=== PATIENT | female | born 1990 | race Caucasian/White ===

== ENCOUNTER → 2016-09-30 | Outpatient (CLI) | payer OTHER ==
[2016-09-30 10:28] LABS: BILIRUBIN,URINE NEGATIVE (NEGATIVE); BLOOD/HEMOGLOBIN,URINE 1+ (NEGATIVE); GLUCOSE, URINE NEGATIVE (NEGATIVE); KETONES,URINE NEGATIVE (NEGATIVE); LEUKOCYTE ESTERASE ,URINE 1+ (NEGATIVE); NITRITES,URINE NEGATIVE (NEGATIVE); PROTEIN,URINE 1+ (NEGATIVE); UROBILINOGEN,URINE NORMAL (NORMAL)
[2016-09-30 10:35] LABS: APPEARANCE,URINE HAZY (CLEAR); BACTERIA,URINE TRACE /HPF (NEGATIVE); COLOR,URINE YELLOW (YELLOW); MUCUS,URINE MODERATE /HPF (NEGATIVE); SQUAMOUS EPITHELIAL CELL,UR MODERATE /HPF (NEGATIVE)
[2016-09-30 10:40] LABS: SERUM PREGNANCY TEST, QUAL NEGATIVE <10 mIU/mL
[2016-09-30 10:41] LABS: BLOOD UREA NITROGEN 13 mg/dL (7-18); CALCIUM 9.5 mg/dL (8.5-10.1); CARBON DIOXIDE 29.2 mmol/L (21-32); CHLORIDE 104 mmol/L (98-107); CREATININE 1.11 mg/dL (0.55-1.02); GLUCOSE 87 mg/dL (65-99); SODIUM 141 mmol/L (136-145); eGFR BLACK RACES > 60 (>60); eGFR NON BLACK RACES > 60 (>60)
[2016-09-30 11:03] LABS: BASOPHILS # (AUTO) 0.1 X10^3/uL (0.0-0.1); BASOPHILS % (AUTO) 0.9 % (0.2-1.0); EOSINOPHILS # (AUTO) 0.1 x10^3/uL (0.0-0.2); EOSINOPHILS % (AUTO) 1.6 % (0.9-2.9); HEMATOCRIT 41.2 % (36.0-47.0); LYMPHOCYTES # (AUTO) 1.6 X10^3/uL (1.3-2.9); LYMPHOCYTES % (AUTO) 28.5 % (21.0-51.0); MEAN CORPUSCULAR HEMOGLOBIN 29.2 pg (27.0-34.0); MEAN CORPUSCULAR HGB CONC 33.9 g/dL (33.0-35.0); MEAN CORPUSCULAR VOLUME 86.2 fL (80.0-100.0); MEAN PLATELET VOLUME 9.9 fL (7.4-11.0); MONOCYTES # (AUTO) 0.4 x10^3/uL (0.3-0.8); MONOCYTES % (AUTO) 6.7 % (0.0-13.0); NEUTROPHILS # (AUTO) 3.5 x10^3/uL (2.2-4.8); NEUTROPHILS % (AUTO) 62.3 % (42.0-75.0); PLATELET COUNT 309 X10^3/uL (150.0-450.0); RED BLOOD COUNT 4.78 X10^6/uL (3.5-5.4); RED CELL DISTRIBUTION WIDTH 12.5 % (11.6-16.5); WHITE BLOOD COUNT 5.6 X10^3/uL (3.6-10.0)
== END ==
LOC: LAB 09:32
PROVIDERS: ATTEND Specialist
DX: Z01.818 Encounter for other preprocedural examination (principal); N92.5 Other specified irregular menstruation; N94.6 Dysmenorrhea, unspecified; N94.19 Other specified dyspareunia; R10.2 Pelvic and perineal pain
CPT/HCPCS: 36415; 80048; 81001; 84703; 85025; 85610; 85730; 86850; 86900; 86901; 87086

== ENCOUNTER 2016-10-07 06:16 | Inpatient (IN) | payer OTHER ==
[2016-10-07] MEDS ORDERED: ANCEF VIAL 1 GM 1 GM in NS 50 ML IV + SPIKE MINIBAG* 50 ML IV PRN (06:29)
[2016-10-07] MEDS ORDERED: D5 1/2 NS 1000 ML 1,000 ML IV SCH ×2 (06:29→10:03)
[2016-10-07] MEDS ORDERED: NS 50 ML IV + SPIKE MINIBAG* 50 ML IV ONE (06:31)
[2016-10-07] MEDS ORDERED: ANCEF VIAL 1 GM ONE (06:32)
[2016-10-07] MEDS ORDERED: DECADRON INJ ONE (06:45)
[2016-10-07 07:01] VITALS: BMI 24.5
[2016-10-07] MEDS ORDERED: FENTANYL INJ 250 mcg ONE (07:08)
[2016-10-07] MEDS ORDERED: DILAUDID INJ ONE ×3 (07:08→09:15)
[2016-10-07] MEDS ORDERED: D5 1/2 NS 1000 ML 1,000 ML IV ONE (07:10)
[2016-10-07] MEDS ORDERED: NS IRRIGATION 1000 ML 1,000 ML IR ONE (07:38)
[2016-10-07] MEDS: LR 1000 ML IV 1,000 ML IV ONE ×2 (07:50→08:12)
[2016-10-07 08:11] LABS: BILIRUBIN,URINE NEGATIVE (NEGATIVE); BLOOD/HEMOGLOBIN,URINE NEGATIVE (NEGATIVE); GLUCOSE, URINE 1+ (NEGATIVE); KETONES,URINE 1+ (NEGATIVE); LEUKOCYTE ESTERASE ,URINE NEGATIVE (NEGATIVE); NITRITES,URINE NEGATIVE (NEGATIVE); PROTEIN,URINE NEGATIVE (NEGATIVE); UROBILINOGEN,URINE NORMAL (NORMAL)
[2016-10-07 08:16] LABS: AMORPHOUS SEDIMENT,UR TRACE /HPF (NEGATIVE); APPEARANCE,URINE CLEAR (CLEAR); BACTERIA,URINE NEGATIVE /HPF (NEGATIVE); COLOR,URINE YELLOW (YELLOW); RBC,URINE RARE /HPF (NEGATIVE); SQUAMOUS EPITHELIAL CELL,UR RARE /HPF (NEGATIVE)
[2016-10-07 08:17] LABS: MUCUS,URINE FEW /HPF (NEGATIVE)
[2016-10-07] MEDS: DILAUDID INJ IVP PRN ×5 (09:00→09:20)
[2016-10-07] MEDS ORDERED: ZOFRAN INJ 4 MG VIAL IVP PRN ×2 (09:04→10:03)
[2016-10-07] MEDS ORDERED: BENADRYL INJ 50 MG VIAL IVP PRN ×2 (09:04→10:03)
[2016-10-07] MEDS ORDERED: REGLAN INJ 10 MG VIAL IVP PRN (09:04)
[2016-10-07] MEDS ORDERED: PHENERGAN INJ 25 MG IVP PRN (09:04)
[2016-10-07] MEDS ORDERED: MORPHINE SULFATE PCA 30 MG IVP PRN (09:12)
[2016-10-07] MEDS ORDERED: TORADOL 30 MG VIAL IVP PRN (10:03)
[2016-10-07] MEDS: MORPHINE SULFATE PCA 30 MG IVP PRN ×2 (10:23→20:35)
[2016-10-07] MEDS: D5 1/2 NS 1000 ML 1,000 ML IV SCH ×4 (12:52→23:12)
[2016-10-07] MEDS: PHENERGAN INJ 25 MG IV PRN ×2 (12:52→21:19)
[2016-10-07] MEDS: PERCOCET TAB 5/325 MG PO PRN ×3 (12:56→21:18)
[2016-10-07] MEDS ORDERED: VERSED ONE (14:12)
[2016-10-07] MEDS ORDERED: LTA KIT LIDOCAINE 4% ONE (14:12)
[2016-10-07] MEDS ORDERED: XYLOCAINE 2 % (PLAIN) ONE (14:12)
[2016-10-07] MEDS ORDERED: NORCURON INJ 10 MG VIAL ONE (14:12)
[2016-10-07] MEDS ORDERED: ROBINUL ONE (14:12)
[2016-10-07] MEDS ORDERED: NEOSTIGMINE INJ ONE (14:12)
[2016-10-07] MEDS ORDERED: QUELICIN (OR ANECTINE) ONE (14:12)
[2016-10-07] MEDS ORDERED: SUPRANE IN ONE (14:12)
[2016-10-07] MEDS ORDERED: EPHEDRINE SULFATE INJ ONE (14:12)
[2016-10-07] MEDS ORDERED: ZOFRAN INJ 4 MG VIAL ONE (14:12)
[2016-10-07] MEDS ORDERED: DIPRIVAN VIAL ONE (14:12)
[2016-10-07] MEDS ORDERED: INDERAL TAB 10 MG PO SCH (21:00)
[2016-10-07] MEDS: INDERAL TAB 10 MG PO SCH (21:18)
[2016-10-08] MEDS: PERCOCET TAB 5/325 MG PO PRN ×3 (04:27→20:35)
[2016-10-08] MEDS: PHENERGAN INJ 25 MG IV PRN (04:28)
[2016-10-08] MEDS: D5 1/2 NS 1000 ML 1,000 ML IV SCH ×3 (04:30→22:40)
[2016-10-08 05:57] LABS: BASOPHILS % (AUTO) 0.5 % (0.2-1.0); EOSINOPHILS % (AUTO) 0.6 % (0.9-2.9); HEMATOCRIT 35.8 % (36.0-47.0); LYMPHOCYTES # (AUTO) 1.9 X10^3/uL (1.3-2.9); LYMPHOCYTES % (AUTO) 27.2 % (21.0-51.0); MEAN CORPUSCULAR HEMOGLOBIN 28.9 pg (27.0-34.0); MEAN CORPUSCULAR HGB CONC 33.6 g/dL (33.0-35.0); MEAN CORPUSCULAR VOLUME 85.9 fL (80.0-100.0); MEAN PLATELET VOLUME 9.6 fL (7.4-11.0); MONOCYTES # (AUTO) 0.8 x10^3/uL (0.3-0.8); MONOCYTES % (AUTO) 12.2 % (0.0-13.0); NEUTROPHILS # (AUTO) 4.1 x10^3/uL (2.2-4.8); NEUTROPHILS % (AUTO) 59.5 % (42.0-75.0); PLATELET COUNT 225 X10^3/uL (150.0-450.0); RED BLOOD COUNT 4.17 X10^6/uL (3.5-5.4); RED CELL DISTRIBUTION WIDTH 12.2 % (11.6-16.5); WHITE BLOOD COUNT 6.9 X10^3/uL (3.6-10.0)
[2016-10-08 06:01] LABS: BLOOD UREA NITROGEN 10 mg/dL (7-18); CALCIUM 8.4 mg/dL (8.5-10.1); CARBON DIOXIDE 29.3 mmol/L (21-32); CHLORIDE 105 mmol/L (98-107); CREATININE 1.02 mg/dL (0.55-1.02); GLUCOSE 99 mg/dL (65-99); SODIUM 139 mmol/L (136-145); eGFR BLACK RACES > 60 (>60); eGFR NON BLACK RACES > 60 (>60)
[2016-10-08] MEDS: INDERAL TAB 10 MG PO SCH ×2 (08:41→20:29)
[2016-10-08] MEDS: COLACE CAP 100 MG PO SCH ×2 (08:41→20:29)
[2016-10-08] MEDS: MOTRIN TAB 800 MG PO PRN (12:54)
[2016-10-08] MEDS: BACTROBAN OINT TOP SCH ×2 (15:43→21:55)
[2016-10-09] MEDS: BACTROBAN OINT TOP SCH (06:26)
[2016-10-09] MEDS: D5 1/2 NS 1000 ML 1,000 ML IV SCH (06:27)
[2016-10-09] MEDS: MOTRIN TAB 800 MG PO PRN (07:04)
[2016-10-09 08:14] VITALS: BP 97/54
[2016-10-09] MEDS: INDERAL TAB 10 MG PO SCH (10:00)
[2016-10-09] MEDS: COLACE CAP 100 MG PO SCH (10:01)
== END 2016-10-09 10:40 | disposition home or self-care (01) | DRG 743 ==
LOC: OBS 06:16
PROVIDERS: ADMIT Specialist; ATTEND Specialist
PROC: 0UTC0ZZ Resection of Cervix, Open Approach (ICD-10-PCS; 2016-10-07)
PROC: 0UT90ZZ Resection of Uterus, Open Approach (ICD-10-PCS; principal; 2016-10-07 07:30)
DX: N92.5 Other specified irregular menstruation (principal); N94.6 Dysmenorrhea, unspecified; N94.19 Other specified dyspareunia; I10 Essential (primary) hypertension; R10.2 Pelvic and perineal pain; Z87.42 Personal history of other diseases of the female genital tract
CPT/HCPCS: 36415; 80048; 81001; 85025; 94760; A4216; A4222; J0330; J0690; J1100; J1170; J1885; J2001; J2250; J2271; J2405; J2550; J2710; J3010; J3490; J7042; J7120

== ENCOUNTER 2016-10-14 10:52 | Inpatient (IN) | payer OTHER ==
[2016-10-14 10:58] VITALS: BMI 24.6
[2016-10-14] MEDS ORDERED: NS 1000 ML 1,000 ML ONE ×2 (11:13→12:45)
[2016-10-14] MEDS ORDERED: NS 1000 ML 1,000 ML IV ONE ×2 (11:18→12:48)
[2016-10-14] MEDS ORDERED: ZOFRAN INJ 4 MG VIAL IVP ONE (11:24)
[2016-10-14] MEDS ORDERED: MORPHINE SULFATE INJ 4 MG IVP ONE (11:24)
--- NOTE | 2016-10-14 11:29 | DR.GENAD ---
HPI - PCP Primary Care Physician: hai - HPI Comment HPI Comment: PAIN SEVERE AND SOME VAGINAL BLEEDING WITH CLOT NOTED. SHE FEEL WEAK AND ALMOST FAINTED. SOME NAUSE BUT NO VOMITING. - Complaint/Symptoms Chief Complaint Doctors Comments: ABDOMINAL PAIN SINCE THIS AM. S/P HYSTERECTOMY ONE WEEK AGO. Chief Complaint:: patient had abd hysterectomy a week ago and this morning she started hurting bad and she stated she blacked out. she called her ob and was told to come to the er. - Nurses notes reviewed Nurses Notes Review: Yes - Source History Provided: Patient - Mode of Arrival Mode of Arrival: Wheelchair - Timing Onset of Chief Complaint: 10/14/16 Came on: Suddenly - Duration Duration: Constant Duration: Hours - Severity Severity: Moderate PMH - PMH Past Medical History: No Past Surgical History: Yes Surgical History: , Hysterectomy, Tonsillectomy - Family History History of Family Medical Conditions: Yes Family Medical History: Diabetes Mellitus, Cancer, [place], Hypertension - Social History Does patient currently use any type of tobacco product: No Have you used tobacco products in the last 12 months: No Type of Tobacco Use: None Does any household member use tobacco: No Alcohol Use: None Do you use any recreational Drugs:: No Lives With: Family Lives Where: Home - infectious screening In the last 2 months have you had wt loss of >10#?: NO Have you had fever, night sweats or hemotysis?: No Have you traveled outside the country in the last 6 months?: No Isolation: Standard ROS - Review of Systems Constitutional: Weakness, Fatigue Eyes: Blurred Vision (SLIGHT BLURRED VISION.) ENTM: No Symptoms Reported Respiratoy: No Symptoms Reported Cardiovascular: No Symptoms Reported Gastrointestinal/Abdominal: Abdominal Pain, Nausea Genitourinary: No Symptoms Reported. negative: Dysuria, Frequency, Hematuria Neurological: Weakness, Dizziness Musculoskeletal: No Symptoms Reported Integumentary: No Symptoms Reported Hematologic/Lymphatic: No Symptoms Reported Endocrine: No Symptoms Reported All Other Systems: Reviewed and Negative PE - Vital Signs Vitals: Temperature 97.8 F Pulse Rate 133 Respiratory Rate 18 Blood Pressure [Right Arm] 97/54 Blood Pressure [Left Arm] 100/61 Blood Pressure 103/67 O2 Sat by Pulse Oximetry 99 - General Limitations: No Limitations General Appearance: Alert - Head Head Exam: Normal Inspection - Eyes Eye exam: Normal Appearance - ENT ENT Exam: Normal External Ear Exam External Ear Exam: Normal External Inspection TM/Canal Exam: Bilateral Normal Nose Exam: Normal Nose Exam Mouth Exam: Normal Inspection Throat Exam: Normal Inspection - Neck Neck Exam: Trachea Midline - Chest Chest Inspection: Symmetric Chest Wall Rise - Respiratory Respiratory Exam: Normal Lung Sounds Bilat Respiratory Exam: Bilateral Clear to Auscultation - Cardiovascular Cardiovascular Exam: Regular Rate, Normal Rhythm, Normal Heart Sounds - Abdominal Exam Abdominal Exam: Normal Bowel Sounds, Soft, Tenderness Abdominal Tenderness: Diffuse, Severe - Extremities Extremities Exam: Normal Inspection - Back Back Exam: Normal Inspection - Neurologic Neurological Exam: Alert, Oriented X3, CN II-XII Intact. negative: Motor Sensory Deficit - Psychiatric Psychiatric Exam: Anxious - Skin Skin Exam: Pallor MDM - Additional Information Additional Information Obtained From: Family - Differential Diagnosis Differential Diagnosis: HYPOTENSION, ABDOMINAL PAIN. RULE OUT HEMORRHAGE. Course - Treatment Treatment: SEE ORDERS. - Reevaluation 1st: Improved (BP IMPROVING WITH IV FLUIDS.) - Consultation Consultation Comments: DISCUSS PATIENT WITH DR. KING, [employer] . SHE WILL ADMIT PATIENT. - Education/Counseling Education/Counseling: Patient, Family, Education Educated On: Treatment, Diagnosis ROR - Labs Reviewed Laboratory Results Reviewed?: Yes Result Diagrams: 10/14/16 17:35 10/14/16 11:20 - XRAY XRAY Interpreted by: Radiologist XRAY Findings: REPORT DISCUSS WITH PATIENT AND HER FAMILY. - Diagnosis Discharge Problem: Pelvic hematoma, female Abdominal pain Qualifiers: Abdominal location: generalized Qualified Code(s): R10.84 - Generalized abdominal pain Hypotension Qualifiers: Hypotension type: orthostatic hypotension Qualified Code(s): I95.1 - Orthostatic hypotension - Discharge Plan Disposition: ADMITTED INPATIENT Condition: Stable - Follow ups/Referrals - Instructions
[2016-10-14 11:37] LABS: BASOPHILS # (AUTO) 0.1 X10^3/uL (0.0-0.1); BASOPHILS % (AUTO) 0.7 % (0.2-1.0); EOSINOPHILS # (AUTO) 0.1 x10^3/uL (0.0-0.2); EOSINOPHILS % (AUTO) 0.8 % (0.9-2.9); HEMATOCRIT 32.3 % (36.0-47.0); LYMPHOCYTES # (AUTO) 1.3 X10^3/uL (1.3-2.9); LYMPHOCYTES % (AUTO) 11.3 % (21.0-51.0); MEAN CORPUSCULAR HEMOGLOBIN 29.1 pg (27.0-34.0); MEAN CORPUSCULAR HGB CONC 34.2 g/dL (33.0-35.0); MEAN PLATELET VOLUME 9.3 fL (7.4-11.0); MONOCYTES # (AUTO) 0.8 x10^3/uL (0.3-0.8); MONOCYTES % (AUTO) 6.9 % (0.0-13.0); NEUTROPHILS # (AUTO) 9.5 x10^3/uL (2.2-4.8); NEUTROPHILS % (AUTO) 80.3 % (42.0-75.0); PLATELET COUNT 345 X10^3/uL (150.0-450.0); RED CELL DISTRIBUTION WIDTH 12.2 % (11.6-16.5); WHITE BLOOD COUNT 11.8 X10^3/uL (3.6-10.0)
[2016-10-14 11:44] LABS: ALANINE AMINOTRANSFERASE 14 Units/L (12-78); ALBUMIN 3.9 g/dL (3.4-5.0); ALKALINE PHOSPHATASE 49 Units/L (46-116); ASPARTATE AMINO TRANSFERASE 11 Units/L (15-37); BLOOD UREA NITROGEN 11 mg/dL (7-18); CALCIUM 9.3 mg/dL (8.5-10.1); CARBON DIOXIDE 24.5 mmol/L (21-32); CHLORIDE 104 mmol/L (98-107); CREATININE 0.99 mg/dL (0.55-1.02); GLUCOSE 103 mg/dL (65-99); SODIUM 140 mmol/L (136-145); TOTAL PROTEIN 7.9 g/dL (6.4-8.2); eGFR BLACK RACES > 60 (>60); eGFR NON BLACK RACES > 60 (>60)
[2016-10-14] MEDS ORDERED: NS 100 ML IV 100 ML IV ONE (11:59)
[2016-10-14] MEDS ORDERED: ZOFRAN INJ 4 MG VIAL ONE (12:17)
[2016-10-14] MEDS ORDERED: MORPHINE SULFATE INJ 4 MG ONE (12:17)
--- NOTE | 2016-10-14 12:42 | CT ---
CT abdomen pelvis with contrast Indication: Abdominal pain with history of hysterectomy 1 week ago Technique: Helical CT images of the abdomen and pelvic were obtained with IV contrast. Reformatted i mages in the coronal and sagittal planes were also generated for review. Comparison: None Findings: The visualized lung bases are clear. No aggressive osseous lesions are identified. Postsurgical changes related to recent hysterectomy are noted. There is a large mixed attenuation co llection within the lower pelvis, compatible with hematoma. The hematoma measures roughly 10.2 x 7.1 by 10.6 cm in maximum transverse by AP by CC dimension. Small-moderate volume abdominal hemoperiton eum is also present, related to direct cranial extension of the pelvic hematoma. There are multiple small areas of ill-defined contrast blush within the pelvic hematoma (within the right pelvis on dianelys ge 76-79 and lower pelvis on 85-86, series 4), concerning for active extravasation. The liver, gallbladder, spleen, pancreas, adrenals, kidneys, IVC and abdominal aorta are unremarkabl e. No incidental lymphadenopathy is identified. Impression: 1. Post hysterectomy changes with large lower pelvic hematoma and multifocal areas of contrast blush , concerning for active extravasation. 2. Small-moderate volume abdominal hemoperitoneum, related to direct cranial extension of the pelvic hematoma. Reported By:
[2016-10-14] MEDS: DILAUDID INJ IVP PRN ×2 (13:36→20:32)
[2016-10-14 13:52] LABS: BILIRUBIN,URINE NEGATIVE (NEGATIVE); BLOOD/HEMOGLOBIN,URINE 4+ (NEGATIVE); GLUCOSE, URINE NEGATIVE (NEGATIVE); KETONES,URINE 2+ (NEGATIVE); LEUKOCYTE ESTERASE ,URINE 2+ (NEGATIVE); NITRITES,URINE NEGATIVE (NEGATIVE); PROTEIN,URINE 2+ (NEGATIVE); UROBILINOGEN,URINE NORMAL (NORMAL)
[2016-10-14] MEDS: NS 1000 ML 1,000 ML IV SCH (13:54)
[2016-10-14 13:56] LABS: HEMATOCRIT 25.1 % (36.0-47.0); HEMOGLOBIN 8.7 g/dL (12.0-16.0)
[2016-10-14 14:03] LABS: APPEARANCE,URINE HAZY (CLEAR); BACTERIA,URINE TRACE /HPF (NEGATIVE); COLOR,URINE YELLOW (YELLOW); SQUAMOUS EPITHELIAL CELL,UR FEW /HPF (NEGATIVE)
[2016-10-14 15:21] LABS: HEMATOCRIT 26.2 % (36.0-47.0); HEMOGLOBIN 8.9 g/dL (12.0-16.0)
[2016-10-14 17:44] LABS: HEMATOCRIT 24.3 % (36.0-47.0); HEMOGLOBIN 8.4 g/dL (12.0-16.0)
[2016-10-14] MEDS ORDERED: TYLENOL 325 MG TAB PO PRN (17:51)
[2016-10-14] MEDS ORDERED: NS 500 ML IV 500 ML IV SCH (18:00)
[2016-10-14] MEDS: ZOFRAN INJ 4 MG VIAL IVP PRN (19:27)
[2016-10-14] MEDS ORDERED: PHENERGAN INJ 25 MG IVP ONE (23:24)
[2016-10-15] MEDS: DILAUDID INJ IVP PRN (03:22)
[2016-10-15] MEDS: ZOFRAN INJ 4 MG VIAL IVP PRN (03:30)
[2016-10-15] MEDS: NS 1000 ML 1,000 ML IV SCH ×2 (04:23→13:22)
[2016-10-15 04:31] LABS: BASOPHILS % (AUTO) 0.2 % (0.2-1.0); EOSINOPHILS % (AUTO) 0.1 % (0.9-2.9); HEMOGLOBIN 10.2 g/dL (12.0-16.0); LYMPHOCYTES % (AUTO) 6.4 % (21.0-51.0); MEAN CORPUSCULAR HEMOGLOBIN 29.1 pg (27.0-34.0); MEAN CORPUSCULAR HGB CONC 33.9 g/dL (33.0-35.0); MEAN CORPUSCULAR VOLUME 86.1 fL (80.0-100.0); MEAN PLATELET VOLUME 9.8 fL (7.4-11.0); MONOCYTES # (AUTO) 0.7 x10^3/uL (0.3-0.8); MONOCYTES % (AUTO) 4.2 % (0.0-13.0); NEUTROPHILS # (AUTO) 13.9 x10^3/uL (2.2-4.8); NEUTROPHILS % (AUTO) 89.1 % (42.0-75.0); PLATELET COUNT 321 X10^3/uL (150.0-450.0); RED BLOOD COUNT 3.48 X10^6/uL (3.5-5.4); RED CELL DISTRIBUTION WIDTH 12.5 % (11.6-16.5); WHITE BLOOD COUNT 15.6 X10^3/uL (3.6-10.0)
[2016-10-15 05:00] LABS: ALANINE AMINOTRANSFERASE 12 Units/L (12-78); ALBUMIN 3.1 g/dL (3.4-5.0); ALKALINE PHOSPHATASE 42 Units/L (46-116); ASPARTATE AMINO TRANSFERASE 12 Units/L (15-37); BLOOD UREA NITROGEN 10 mg/dL (7-18); CALCIUM 7.9 mg/dL (8.5-10.1); CARBON DIOXIDE 22.1 mmol/L (21-32); CHLORIDE 108 mmol/L (98-107); COR CA(FOR HYPOALB) 8.6 mg/dL (8.5-10.1); CREATININE 0.73 mg/dL (0.55-1.02); GLUCOSE 110 mg/dL (65-99); SODIUM 141 mmol/L (136-145); TOTAL PROTEIN 6.4 g/dL (6.4-8.2); eGFR BLACK RACES > 60 (>60); eGFR NON BLACK RACES > 60 (>60)
[2016-10-15 06:49] LABS: HEMATOCRIT 26.6 % (36.0-47.0); HEMOGLOBIN 9.1 g/dL (12.0-16.0)
[2016-10-15 08:04] LABS: BILIRUBIN,URINE NEGATIVE (NEGATIVE); BLOOD/HEMOGLOBIN,URINE 5+ (NEGATIVE); GLUCOSE, URINE 2+ (NEGATIVE); KETONES,URINE 4+ (NEGATIVE); LEUKOCYTE ESTERASE ,URINE NEGATIVE (NEGATIVE); NITRITES,URINE NEGATIVE (NEGATIVE); PROTEIN,URINE 1+ (NEGATIVE); UROBILINOGEN,URINE NORMAL (NORMAL)
[2016-10-15 08:15] LABS: APPEARANCE,URINE HAZY (CLEAR); BACTERIA,URINE TRACE /HPF (NEGATIVE); COLOR,URINE YELLOW (YELLOW); SQUAMOUS EPITHELIAL CELL,UR NEGATIVE /HPF (NEGATIVE)
[2016-10-15 08:16] LABS: MUCUS,URINE FEW /HPF (NEGATIVE)
[2016-10-15 09:27] LABS: HEMATOCRIT 24.6 % (36.0-47.0); HEMOGLOBIN 8.4 g/dL (12.0-16.0)
[2016-10-15] MEDS ORDERED: ANCEF VIAL 1 GM 1 GM in NS 100 ML IV 100 ML IV PRN (09:38)
[2016-10-15] MEDS ORDERED: VERSED ONE (09:44)
[2016-10-15] MEDS ORDERED: NORCURON INJ 10 MG VIAL ONE (09:44)
[2016-10-15] MEDS ORDERED: XYLOCAINE 2 % (PLAIN) ONE (09:44)
[2016-10-15] MEDS ORDERED: NEOSTIGMINE INJ ONE (09:44)
[2016-10-15] MEDS ORDERED: ROBINUL ONE (09:44)
[2016-10-15] MEDS ORDERED: DIPRIVAN VIAL ONE (09:44)
[2016-10-15] MEDS ORDERED: ZOFRAN INJ 4 MG VIAL ONE (09:44)
[2016-10-15] MEDS ORDERED: QUELICIN (OR ANECTINE) ONE (09:44)
[2016-10-15] MEDS ORDERED: SUPRANE IN ONE (09:44)
[2016-10-15] MEDS ORDERED: FENTANYL INJ 250 mcg ONE (10:29)
[2016-10-15] MEDS ORDERED: NS 50 ML IV + SPIKE MINIBAG* 50 ML IV ONE (10:43)
[2016-10-15] MEDS ORDERED: NS 500 ML IV 500 ML IV ONE (10:44)
[2016-10-15] MEDS ORDERED: ANCEF VIAL 1 GM ONE (10:44)
[2016-10-15 10:45] LABS: HEMATOCRIT 25.2 % (36.0-47.0); HEMOGLOBIN 8.6 g/dL (12.0-16.0)
[2016-10-15] MEDS: LR 1000 ML IV 1,000 ML IV ONE ×2 (10:50→10:53)
[2016-10-15] MEDS ORDERED: NS IRRIGATION 1000 ML 1,000 ML IR ONE ×2 (11:28→11:45)
[2016-10-15] MEDS ORDERED: DILAUDID INJ ONE ×2 (12:04→12:49)
[2016-10-15] MEDS ORDERED: PHENERGAN INJ 25 MG IVP PRN (12:50)
[2016-10-15] MEDS ORDERED: ZOFRAN INJ 4 MG VIAL IVP PRN ×2 (12:50→13:25)
[2016-10-15] MEDS ORDERED: BENADRYL INJ 50 MG VIAL IVP PRN ×2 (12:50→13:25)
[2016-10-15] MEDS ORDERED: REGLAN INJ 10 MG VIAL IVP PRN (12:50)
[2016-10-15] MEDS ORDERED: DILAUDID INJ IVP PRN (12:50)
[2016-10-15] MEDS ORDERED: MORPHINE SULFATE PCA 30 MG IVP PRN ×2 (12:58→13:25)
[2016-10-15] MEDS ORDERED: PHENERGAN INJ 25 MG IV PRN ×2 (12:58→13:25)
[2016-10-15] MEDS ORDERED: TORADOL 30 MG VIAL IVP PRN (13:25)
[2016-10-15] MEDS ORDERED: TYLENOL 325 MG TAB PO PRN (13:25)
[2016-10-15] MEDS: D5 1/2 NS 1000 ML 1,000 ML IV SCH ×2 (13:50→21:19)
[2016-10-15 15:44] LABS: HEMATOCRIT 29.4 % (36.0-47.0); HEMOGLOBIN 10.2 g/dL (12.0-16.0)
[2016-10-15] MEDS ORDERED: NS 500 ML IV 500 ML IV SCH (18:00)
[2016-10-16] MEDS: D5 1/2 NS 1000 ML 1,000 ML IV SCH (05:13)
[2016-10-16 05:18] LABS: BLOOD UREA NITROGEN 9 mg/dL (7-18); CALCIUM 7.4 mg/dL (8.5-10.1); CARBON DIOXIDE 26.5 mmol/L (21-32); CHLORIDE 107 mmol/L (98-107); COR NA(FOR HYPERGLY) 140 mmol/L (136-145); CREATININE 0.74 mg/dL (0.55-1.02); GLUCOSE 113 mg/dL (65-99); SODIUM 140 mmol/L (136-145); eGFR BLACK RACES > 60 (>60); eGFR NON BLACK RACES > 60 (>60)
[2016-10-16 05:34] LABS: BASOPHILS % (AUTO) 0.4 % (0.2-1.0); EOSINOPHILS # (AUTO) 0.2 x10^3/uL (0.0-0.2); EOSINOPHILS % (AUTO) 2.1 % (0.9-2.9); HEMOGLOBIN 9.2 g/dL (12.0-16.0); LYMPHOCYTES # (AUTO) 1.6 X10^3/uL (1.3-2.9); LYMPHOCYTES % (AUTO) 19.3 % (21.0-51.0); MEAN CORPUSCULAR HEMOGLOBIN 30.4 pg (27.0-34.0); MEAN CORPUSCULAR HGB CONC 35.4 g/dL (33.0-35.0); MEAN CORPUSCULAR VOLUME 85.6 fL (80.0-100.0); MEAN PLATELET VOLUME 9.3 fL (7.4-11.0); MONOCYTES # (AUTO) 0.9 x10^3/uL (0.3-0.8); MONOCYTES % (AUTO) 10.9 % (0.0-13.0); NEUTROPHILS # (AUTO) 5.4 x10^3/uL (2.2-4.8); NEUTROPHILS % (AUTO) 67.3 % (42.0-75.0); PLATELET COUNT 197 X10^3/uL (150.0-450.0); RED BLOOD COUNT 3.03 X10^6/uL (3.5-5.4); RED CELL DISTRIBUTION WIDTH 13.5 % (11.6-16.5); WHITE BLOOD COUNT 8.1 X10^3/uL (3.6-10.0)
[2016-10-16] MEDS ORDERED: PERCOCET TAB 5/325 MG PO PRN (07:39)
[2016-10-16] MEDS ORDERED: MOTRIN TAB 800 MG PO PRN (07:39)
[2016-10-16] MEDS ORDERED: COLACE CAP 100 MG PO SCH (09:00)
[2016-10-16] MEDS ORDERED: PHENERGAN INJ 25 MG IV PRN (09:17)
[2016-10-16] MEDS ORDERED: TYLENOL 325 MG TAB PO PRN (09:17)
[2016-10-16] MEDS ORDERED: BENADRYL INJ 50 MG VIAL IVP PRN (09:17)
[2016-10-16] MEDS: MOTRIN TAB 800 MG PO PRN ×2 (12:53→20:35)
[2016-10-16] MEDS: BACTROBAN OINT TOP SCH ×2 (13:53→21:01)
[2016-10-16] MEDS ORDERED: BACTROBAN OINT TOP SCH (14:00)
[2016-10-16] MEDS: PERCOCET TAB 5/325 MG PO PRN (14:55)
[2016-10-16] MEDS ORDERED: FERROUS SULFATE PO SCH (17:00)
[2016-10-16] MEDS: FERROUS SULFATE PO SCH (17:17)
[2016-10-16] MEDS ORDERED: MYLICON TAB 80 MG CHEW PO PRN (17:29)
[2016-10-16] MEDS: COLACE CAP 100 MG PO SCH (20:35)
[2016-10-17 04:24] VITALS: BP 106/58
[2016-10-17] MEDS: PERCOCET TAB 5/325 MG PO PRN (05:50)
[2016-10-17] MEDS: BACTROBAN OINT TOP SCH (05:52)
[2016-10-17] MEDS: FERROUS SULFATE PO SCH (06:20)
[2016-10-17] MEDS: COLACE CAP 100 MG PO SCH (09:35)
== END 2016-10-17 10:30 | disposition home or self-care (01) | DRG 983 ==
LOC: ER 11:12 → ICU 13:28 → MED/SURG 10-16 09:05
PROVIDERS: ADMIT Specialist; ATTEND Specialist
PROC: 30233N1 Transfusion of Nonautologous Red Blood Cells into Peripheral Vein, Percutaneous Approach (ICD-10-PCS; 2016-10-14)
PROC: 30233N1 Transfusion of Nonautologous Red Blood Cells into Peripheral Vein, Percutaneous Approach (ICD-10-PCS; 2016-10-14)
PROC: 30233N1 Transfusion of Nonautologous Red Blood Cells into Peripheral Vein, Percutaneous Approach (ICD-10-PCS; 2016-10-15)
PROC: 30233N1 Transfusion of Nonautologous Red Blood Cells into Peripheral Vein, Percutaneous Approach (ICD-10-PCS; 2016-10-15)
PROC: 0W3J0ZZ Control Bleeding in Pelvic Cavity, Open Approach (ICD-10-PCS; principal; 2016-10-15 11:00)
DX: N94.89 Other specified conditions associated with female genital organs and menstrual cycle (principal); I95.1 Orthostatic hypotension; Z90.710 Acquired absence of both cervix and uterus; R10.84 Generalized abdominal pain; D50.8 Other iron deficiency anemias
CPT/HCPCS: 36415; 74177; 80048; 80053; 81001; 85014; 85018; 85025; 85610; 85730; 86850; 86900; 86901; 86922; 87086; 96365; 96367; 96374; 96375; 99284; 99285; A4216; A4222; P9016; J0330; J0690; J1170; J2001; J2250; J2270; J2271; J2405; J2550; J2710; J3010; J3490; J7042; J7120